=== PATIENT | female | born 1990 | race Caucasian/White ===

== ENCOUNTER 2025-04-01 01:09 | Emergency (ER) | payer SELFPAY ==
[~2025-04-01] VITALS: Ht 167.6 cm; Wt 97.1 kg
[2025-04-01 01:29] VITALS: PULSE 75; RESP 16; TEMP 98.6; O2SAT 98
[2025-04-01] MEDS ORDERED: TIZANIDINE HCL4 M1 PO (01:37)
[2025-04-01] MEDS ORDERED: MEDROL4 M2 PO (01:37)
[2025-04-01] MEDS: DEXAMETHASONE SOD PHOS 10 MG/1 ML VIAL IM ONE ×2 (01:38)
== END 2025-04-01 01:40 | disposition home or self-care (01) ==
LOC: ER 01:36
DX: M54.42 Lumbago with sciatica, left side (principal); F17.210 Nicotine dependence, cigarettes, uncomplicated
CPT/HCPCS: 99283; J1100